=== PATIENT | female | born 1985 | race Caucasian/White ===

== ENCOUNTER → 2016-12-11 | Outpatient (CLI) | payer OTHER ==
[~2016-12-11] MED LIST: ACET1TAB43 PO; AMOX1TAB12 PO; BENZ56AE2 TP; CETI10CA PO; CYAN500T52 SL; DOCU100C37 PO; FERR-74 PO; IBUP-1773 PO; NEOM10SO8 OT; NF-CIPDEC RIGHT EAR; OXYC5TAB71 PO; PREN-37 PO
--- NOTE | 2016-12-11 13:39 | Diagnostic Imaging Report ---
INDICATION: Undergoing anatomical assessment. TECHNIQUE: Multiple real-time grayscale images were obtained of the gravid uterus. CORRELATION STUDY: None. FINDINGS: There is presence of a single viable intrauterine , currently in reported variable presentation. There is normal amount of amniotic fluid. The placenta is located anteriorly and without evidence for previa. Cervical length is 3.8 cm. Visualized anatomical structures appearing unremarkable. Biometrical measurements are as follows: Biparietal diameter 4.55 cm, age 19 weeks 6 days. Head circumference 17.24 cm, age 19 weeks 6 days. Abdominal circumference 14.71 cm, age 20 weeks 0 days. Femur length 3.38 cm, age 20 weeks 5 days. Sonographic estimated age: 20 weeks 1 day. Sonographic estimated date of delivery: 04/29/2017. heart rate: 144 BPM Estimated Weight: 339 gm (+/- 50 gm) LMP Percentile: 49% IMPRESSION: 1. Single intrauterine in a variable presentation. Sonographic estimated age of 20 weeks 1 day for an estimated date of delivery of April 29, 2017. Dictated by: Dictated on workstation # [id number]
== END ==
LOC: RAD 11:21
PROVIDERS: ATTEND Obstetrics & Gynecology
DX: Z36 Encounter for antenatal screening of mother (principal); Z3A.20 20 weeks gestation of pregnancy
CPT/HCPCS: 76805

== ENCOUNTER 2016-12-22 13:49 | Emergency (ER) | payer OTHER ==
[~2016-12-22] VITALS: Ht 157.5 cm; Wt 57.6 kg
[~2016-12-22 13:49] MED LIST changes: -AMOX1TAB12 PO; -NEOM10SO8 OT; -NF-CIPDEC RIGHT EAR; -OXYC5TAB71 PO
[2016-12-22] MEDS ORDERED: ONDANSETRON 4 MG (ZOFRAN) ORAL DISSOLVE TAB ONE (14:54)
[2016-12-22] MEDS ORDERED: ONDANSETRON 4 MG (ZOFRAN) ORAL DISSOLVE TAB PO ONE (15:00)
--- NOTE | 2016-12-22 15:09 | ED EENT ---
History of Present Illness General Chief Complaint: Ear Problems Stated Complaint: EAR PAIN SINUS CONGESTION Nursing Triage Note: C/O R-EAR PAIN. RADIATES TO SIDE OF HEAD. STATES NOW FEELS NAUSEA. 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 STATED EAR DRUM NOT RED. SAW DENTIST WHO STATED THAT IT WAS NOT TOOTH ABCESS. WAS GIVEN TYLENOL 3 ET ABX BY PRACTITIONER. STATES TYLENOL 3 NOT EFFECTIVE. Source: patient, RN notes reviewed Exam Limitations: no limitations History of Present Illness Time seen by provider: 15:09 Location: ear (R) Allergies and Home Medications Allergies Coded Allergies: No Known Drug Allergies (Unverified , 09/06/15) Home Medications Acetaminophen with Codeine 1 Each Tablet, 1 EACH PO Q6H, (Reported) Amoxicillin/Potassium Clav 1 Each Tablet, 1 EACH PO BID, (Reported) Cetirizine HCl 10 Mg Capsule, 10 MG PO DAILY, (Reported) Cyanocobalamin (Vitamin B-12) 500 Mcg Tab.subl, 500 MCG SL DAILY, (Reported) Ferrous Sulfate 325 Mg Tablet, 325 MG PO DAILY, #60 Prescribed by: KEITH BAL on 09/07/15 6292 Neomycin/Polymyxin B Sulf/Hc 10 Ml Solution, 10 ML OT, (Reported) Vit/Iron Fumarate/FA 1 Each Tablet, 1 EACH PO DAILY, (Reported) Past Micthnq-Oxidxr-Wgaunw Hx Patient Social History Alcohol Use: Denies Use Recreational Drug Use: No Smoking Status: Never a Smoker Recent Foreign Travel: No Contact w/Someone Who Travel: No Recent Infectious Disease Expo: No Immunizations Up To Date Tetanus Booster (TDap): Less than 5yrs PED Vaccines UTD: No Date of Influenza Vaccine: Aug 20, 2015 Surgeries HX Surgeries: Yes Respiratory Hx Respiratory Disorders: No Cardiovascular Hx Cardiac Disorders: No Neurological Hx Neurological Disorders: No Reproductive System : Yes Hx Reproductive Disorders: No Genitourinary Hx Genitourinary Disorders: No Gastrointestinal Hx Gastrointestinal Disorders: No Musculoskeletal Hx Musculoskeletal Disorders: No Musculoskeletal Disorders: Fractures Endocrine Hx Endocrine Disorders: No HEENT HX ENT Disorders: No Cancer Hx Cancer: No Psychosocial Hx Psychiatric Problems: No Integumentary HX Skin/Integumentary Disorder: No Blood Transfusions Hx Blood Disorders: No Family Medical History Family Medial History: Cardiovascular disease 19 FATHER, Onset:50's - 60 (50 ) Hypertension 19 FATHER, Onset:50's - 60 Myocardial infarction 19 FATHER, Onset:50's - 60 (50) Thyroid disease G8 SISTER, Onset:30's - 40 (one of pt's sister with thyroid disease.) Physical Exam Vital Signs Vital Sign - Last 12Hours 12/22/16 14:39 Temp 98.2 Pulse 80 Resp 18 B/P (MAP) 127/83 O2 Delivery Room Air Progress/Results/Core Measures Results/Orders My Orders Orders - ZION GODOY DO Ondansetron Oral Dissolve Tab (Zofran (12/22/16 15:00) Ondansetron Oral Dissolve Tab (Zofran (12/22/16 14:54) Ketorolac Injection (Toradol Injection) (12/22/16 15:15) Butorphanol Injection (Stadol Injection) (12/22/16 16:00) Medications Given in ED Current Medications Medications Dose Ordered Sig/Graciela Route Start Time Stop Time Status Last Admin Dose Admin Ondansetron HCl 4 mg ONCE ONCE PO 12/22/16 15:00 12/22/16 15:01 DC 12/22/16 15:06 4 MG Vital Signs/I&O Vital Sign - Last 12Hours 12/22/16 14:39 Temp 98.2 Pulse 80 Resp 18 B/P (MAP) 127/83 O2 Delivery Room Air Blood Pressure Mean: 98 Departure Impression Impression: Primary Impression: Acute otalgia Disposition: 01 HOME, SELF-CARE Condition: Stable Departure-Patient Inst. Decision time for Depature: 16:16 Referrals: KEITH ANGEL MD, JACQUELINE S DO (PCP/Family) Primary Care Physician Patient Instructions: Ear Infections (Otitis Media) (DC) Add. Discharge Instructions: All discharge instructions reviewed with patient and/or family. Voiced understanding. TO FOLLOW UP WITH DR. ANGEL Thursday, 12/24, @ 09:15. Scripts Oxycodone HCl (Oxycodone HCl) 5 Mg Tablet 5 MG PO Q6H Y for EAR PAIN, #20 TAB 0 Refills Prov: ZION GODOY DO 12/22/16 Ciprofloxacin HCl/Dexameth (Ciprodex Otic Suspension) 7.5 Ml Soln 4 DROPS RIGHT EAR BID for 10 Days, #1 EA 0 Refills Prov: ZION GODOY DO 12/22/16 ZION GODOY DO December 22, 2016 15:09
[2016-12-22] MEDS ORDERED: KETOROLAC 60 MG/2 ML VIAL IM ONE (15:15)
[2016-12-22] MEDS ORDERED: ACET1TAB43 PO (15:16)
[2016-12-22] MEDS ORDERED: NEOM10SO8 OT (15:16)
[2016-12-22] MEDS ORDERED: AMOX1TAB12 PO (15:16)
[2016-12-22] MEDS ORDERED: BUTORPHANOL INJ 2 MG/ML (STADOL) VIAL IM ONE (16:00)
[2016-12-22] MEDS ORDERED: NF-CIPDEC RIGHT EAR (16:19)
[2016-12-22] MEDS ORDERED: OXYC5TAB71 PO (16:19)
[2016-12-22 16:41] VITALS: BP 127/83
== END 2016-12-22 16:42 | disposition home or self-care (01) ==
LOC: EDUNIT# 13:49 → ER 13:52
DX: H92.01 Otalgia, right ear (principal)
CPT/HCPCS: 96372; 99282

== ENCOUNTER 2017-04-16 04:22 | Inpatient (IN) | payer OTHER ==
[~2017-04-16] VITALS: Ht 157.5 cm; Wt 65.9 kg
[2017-04-16] VITALS (54 sets, daily range): BP systolic 97–157; BP diastolic 55–100
[~2017-04-16 04:22] MED LIST changes: +AMOX1TAB12 PO; +NEOM10SO8 OT; +NF-CIPDEC RIGHT EAR; +OXYC5TAB71 PO
[2017-04-16] MEDS ORDERED: D5 LR IV SOLUTION 1,000 ML IV SCH (06:06)
[2017-04-16] MEDS ORDERED: MINERAL OIL CONCENTRATE 99.9% 15 ML UDC TOP PRN (06:15)
[2017-04-16] MEDS ORDERED: SUFENTA 0.6MCG/ML BUPIVA 0.125 100 ML ONE (06:29)
[2017-04-16 06:38] LABS: BASOPHILS % (AUTO) 0 % (0-10); EOSINOPHILS # (AUTO) 0.2 10^3/uL (0.0-0.3); EOSINOPHILS % (AUTO) 2 % (0-10); LYMPHOCYTES # (AUTO) 2.4 X 10^3 (1.0-4.0); LYMPHOCYTES % (AUTO) 31 % (12-44); MEAN CORPUSCULAR HEMOGLOBIN 29 PG (25-34); MEAN CORPUSCULAR HGB CONC 34 G/DL (32-36); MEAN CORPUSCULAR VOLUME 86 FL (80-99); MEAN PLATELET VOLUME 9.8 FL (7.4-10.4); MONOCYTES # (AUTO) 0.6 X 10^3 (0.0-1.0); MONOCYTES % (AUTO) 8 % (0-12); NEUTROPHILS # (AUTO) 4.4 X 10^3 (1.8-7.8); NEUTROPHILS % (AUTO) 58 % (42-75); PLATELET COUNT 329 10^3/uL (130-400); RED BLOOD COUNT 3.55 10^6/uL (4.35-5.85); RED CELL DISTRIBUTION WIDTH 14.9 % (10.0-14.5); WHITE BLOOD COUNT 7.7 10^3/uL (4.3-11.0)
[2017-04-16] MEDS ORDERED: LACTATED RINGERS 1,000 ML IV SCH (07:01)
[2017-04-16 07:09] LABS: BILIRUBIN,URINE NEGATIVE (NEGATIVE); KETONES,URINE NEGATIVE (NEGATIVE); LEUKOCYTE ESTERASE ,URINE NEGATIVE (NEGATIVE); NITRITE,URINE NEGATIVE (NEGATIVE); PH,URINE 7 (5-9); PROTEIN,URINE NEGATIVE (NEGATIVE); UROBILINOGEN,URINE NORMAL (NORMAL)
[2017-04-16] MEDS ORDERED: MISOPROSTOL 100 MCG (CYTOTEC) TAB PO NR (07:15)
--- NOTE | 2017-04-16 07:17 | History & Physical-OB ---
OB - Chief Complaint & HPI Date/Time Date of Admission: Date of Admission: Apr 16, 2017 at 6:04 am Time Seen by Provider: 07:10 Chief Complaint/History OB-Reason for Admission/Chief: Induction of Labor Hx : 2 Hx Para: 1 Expected Date of Delivery: Apr 29, 2017 Indication for induction: medical complication Other reason for admission: Patient brought in for unstable ly and ECV today, where she was found to be vertex on exam today. Fluid levels have hovered around the oligo david, and at times a funic presentation was noted. Admission Nurse Assessment Rev: Yes History of Labs Abnormal quad screen increased risk of T21 B neg Antibody neg RI RPR NR HBsAg NR HIV NR GC neg GBS neg Allergies and Home Medications Allergies Coded Allergies: No Known Drug Allergies (Unverified , 04/16/17) Home Medications Acetaminophen with Codeine 1 Each Tablet, 1 EACH PO Q6H, (Reported) Amoxicillin/Potassium Clav 1 Each Tablet, 1 EACH PO BID, (Reported) Cetirizine HCl 10 Mg Capsule, 10 MG PO DAILY, (Reported) Ciprofloxacin HCl/Dexameth 7.5 Ml Soln, 4 DROPS RIGHT EAR BID for 10 Days, #1 Ref 0 Prescribed by: ZION GODOY on 12/22/16 1619 Cyanocobalamin (Vitamin B-12) 500 Mcg Tab.subl, 500 MCG SL DAILY, (Reported) Ferrous Sulfate 325 Mg Tablet, 325 MG PO DAILY, #60 Prescribed by: KEITH BAL on 09/07/15 2319 Neomycin/Polymyxin B Sulf/Hc 10 Ml Solution, 10 ML OT, (Reported) Oxycodone HCl 5 Mg Tablet, 5 MG PO Q6H PRN for EAR PAIN, #20 Ref 0 Prescribed by: ZION GODOY on 12/22/16 1619 Vit/Iron Fumarate/FA 1 Each Tablet, 1 EACH PO DAILY, (Reported) OB - History Hx of Present Care: Yes Ultrasounds: Abnormal US findings (oligohydramnios) Obstetrical Complications: Other (Abnormal quad screen T21, unstable lye) Medical Complications: None Delivery History Hx Blood Disorders: No Patient Past Medical History none Immunizations Hepatitis A: Yes Hepatitis B: Yes Tetanus Booster (TDap): Less than 5yrs Date of Influenza Vaccine: Aug 20, 2015 OB - Admission Exam Physical Exam Date Seen by Provider: Apr 16, 2017 Time Seen by Provider: 07:00 HEENT: NCAT Heart: Rhythm Normal Lungs: Clear Abdomen: Gravid Extremities: Normal Reflexes: Normal Cervical Dilatation: 2cm Effacement: 75% Station: -1 Membranes: Intact Heart Rate: 130's Accelerations: Accelerations Present Decelerations: No Decelerations Short Term Variability: Present Cone Baker Machine Variability: Average (6-25) Contractions on Admission: >10 Minutes Apart Intensity: Mild Cross Scoring Tool (Modified) Dilation (cm): 1-2cm (1) Effacement (%): 51-79% (2) Descent/Station: -1,0 (2) Cervix Consistency: Soft (2) Cervix Position: Middle/Mid-Position (1) Add 1 point for: Each previous vaginal delivery (1) Cross Score: 9 Labs Laboratory Tests Test 04/16/17 06:10 04/16/17 06:25 Range/Units White Blood Count 7.7 4.3-11.0 10^3/uL Red Blood Count 3.55 L 4.35-5.85 10^6/uL Hemoglobin 10.3 L 11.5-16.0 G/DL Hematocrit 31 L 35-52 % Mean Corpuscular Volume 86 80-99 FL Mean Corpuscular Hemoglobin 29 25-34 PG Mean Corpuscular Hemoglobin Concent 34 32-36 G/DL Red Cell Distribution Width 14.9 H 10.0-14.5 % Platelet Count 329 130-400 10^3/uL Mean Platelet Volume 9.8 7.4-10.4 FL Neutrophils (%) (Auto) 58 42-75 % Lymphocytes (%) (Auto) 31 12-44 % Monocytes (%) (Auto) 8 0-12 % Eosinophils (%) (Auto) 2 0-10 % Basophils (%) (Auto) 0 0-10 % Neutrophils # (Auto) 4.4 1.8-7.8 X 10^3 Lymphocytes # (Auto) 2.4 1.0-4.0 X 10^3 Monocytes # (Auto) 0.6 0.0-1.0 X 10^3 Eosinophils # (Auto) 0.2 0.0-0.3 10^3/uL Basophils # (Auto) 0.0 0.0-0.1 10^3/uL OB - Assessment/Plan/Diagnosis Assessment Assessment: induction of labor Plan Plan: Induction Induction Method: per Misoprostol Protocol Discharge Diagnosis Diagnosis: 32 yo @ 38.1 Unstable presentation Borderline oligohydramnios Abnormal quad screen GBS neg KEITH BAL DO Apr 16, 2017 7:17 am
[2017-04-16 07:20] LABS: SQUAMOUS EPITHELIAL CELL,UR TNTC /HPF
[2017-04-16] MEDS ORDERED: MISOPROSTOL 100 MCG (CYTOTEC) TAB PO SCH (11:15)
[2017-04-16] MEDS ORDERED: CATHETER FLUSH 10 ML SYR IV SCH ×2 (14:00→22:00)
[2017-04-16] MEDS ORDERED: BUPIVACAINE 0.25% 30 ML (SENSORCAINE) VIAL ONE (15:56)
[2017-04-16] MEDS ORDERED: LIDOCAINE PF 2% 5 ML (XYLOCAINE) VIAL ONE (15:56)
[2017-04-16] MEDS ORDERED: fentaNYL INJECTION 100 MCG/2 ML AMP ONE (15:57)
[2017-04-16] MEDS ORDERED: LACTATED RINGERS 1,000 ML IV ONE ×2 (16:23)
[2017-04-16] MEDS ORDERED: ONDANSETRON 4 MG/2 ML (SDV) Z0FRAN IV PRN (16:30)
[2017-04-16] MEDS ORDERED: EPIDURAL (SUFENTA 0.6MCG/ML BUPIVA 0.125%) 100 ML BAG EPI PRN (16:30)
[2017-04-16] MEDS ORDERED: NALOXONE 0.4 MG/ML 1 ML (NARCAN) VIAL IV PRN (16:30)
[2017-04-16] MEDS ORDERED: OXYTOCIN/NORMAL SALINE 500 ML IV ONE (20:47)
[2017-04-16] MEDS ORDERED: OXYTOCIN/NORMAL SALINE 500 ML IV SCH (21:03)
--- NOTE | 2017-04-16 21:09 | OB Labor & Delivery Record ---
L&D History Date of Service Date of Service: Apr 16, 2017 History Expected Date of Delivery: Apr 29, 2017 Gestational Age in Weeks: 38 Hx : 2 Hx Para: 1 Complications Events: Oliohydramnios, Routine care (Abnormal quad screen, Unstable ly) Operative Indications (Cesarea: N/A-Vaginal Delivery Intrapartal Events: None L&D Stage1 Stage One Onset of Labor - Date: Apr 16, 2017 Monitors and Tracing Monitor Mode: External Heart Rate: 110 Monitor Accelerations: Uniform Station: 0 Rigging Loft Mechanic Variability: Average (6-10) Short Term Variability: Present Presentation: Vertex Vital Signs VS - Last 72 Hours, by Label 04/16/17 04/16/17 04/16/17 04/16/17 06:15 08:10 09:10 12:00 Temp 97.8 98.0 Pulse 68 74 71 73 Resp 18 18 18 18 B/P (MAP) 114/68 120/72 111/74 122/61 O2 Delivery Room Air Room Air Room Air Room Air 04/16/17 04/16/17 04/16/17 04/16/17 12:30 12:50 13:10 13:34 Pulse 68 68 69 69 Resp 20 20 18 20 B/P (MAP) 114/67 111/65 117/67 119/70 O2 Delivery Room Air Room Air Room Air Room Air 04/16/17 04/16/17 04/16/17 04/16/17 13:48 14:18 14:35 14:45 Temp 98.2 Pulse 71 67 67 68 Resp 20 20 20 18 B/P (MAP) 119/70 112/73 119/80 118/78 O2 Delivery Room Air Room Air Room Air Room Air 04/16/17 04/16/17 04/16/17 04/16/17 15:00 15:20 15:35 15:50 Pulse 63 67 65 66 Resp 18 18 18 18 B/P (MAP) 117/74 119/86 119/76 113/72 O2 Delivery Room Air Room Air Room Air Room Air 04/16/17 04/16/17 04/16/17 04/16/17 16:05 16:10 16:15 16:20 Pulse 78 75 72 63 Resp 18 18 18 18 B/P (MAP) 115/73 125/72 105/61 111/61 Pulse Ox 100 99 99 O2 Delivery Room Air Room Air Room Air Room Air 04/16/17 04/16/17 04/16/17 04/16/17 16:25 16:30 16:35 16:40 Pulse 61 68 67 69 Resp 18 20 20 20 B/P (MAP) 104/56 104/59 104/59 104/62 Pulse Ox 92 100 99 99 O2 Delivery Room Air Room Air Room Air Room Air 04/16/17 04/16/17 04/16/17 04/16/17 16:45 16:50 16:55 17:00 Pulse 63 66 72 69 Resp 20 20 18 18 B/P (MAP) 107/67 108/67 115/59 106/62 Pulse Ox 99 99 99 98 O2 Delivery Room Air Room Air Room Air Room Air 04/16/17 04/16/17 04/16/17 04/16/17 17:05 17:10 17:15 17:20 Pulse 68 60 65 65 Resp 18 18 18 18 B/P (MAP) 103/65 103/67 108/69 106/69 Pulse Ox 97 98 98 98 O2 Delivery Room Air Room Air Room Air Room Air 04/16/17 04/16/17 04/16/17 04/16/17 17:25 17:30 17:35 17:40 Pulse 67 66 70 63 Resp 20 20 20 20 B/P (MAP) 100/68 105/70 115/75 105/61 Pulse Ox 98 98 98 98 O2 Delivery Room Air Room Air Room Air Room Air 04/16/17 04/16/17 04/16/17 04/16/17 17:55 18:05 18:10 18:25 Pulse 64 65 59 59 Resp 20 20 20 20 B/P (MAP) 97/59 97/62 100/65 109/68 Pulse Ox 99 98 100 100 O2 Delivery Room Air Room Air Room Air Room Air 04/16/17 18:45 Pulse 60 Resp 20 B/P (MAP) 108/64 Pulse Ox 100 O2 Delivery Room Air Rupture of Membranes Spontaneous Ruture of Membrane: Yes Amniotic Membrane Rupture Time: 1158 Amniotic Membrane Fluid Desc.: Clear Vaginal Bleeding Description: Normal Show Induction/Anesthesia Epidural Cath Placement - Time: 1615 Progress/Notes AROM at 1158 and pitocin started this afternoon, patient recieved epidural L&D Stage2 Stage Two Stage II Date: Apr 16, 2017 Monitors and Tracing Monitor Mode: External Heart Rate: 110 Monitor Accelerations: Uniform Monitor Decelerations: Variable Intermediate Variability: Average (6-10) Short Term Variability: Present Position: Right Occiput Anterior Presentation: Vertex Cord Descript/Complications Cord Vessel Description: 3 Vessels Delivery Type Anterior Shoulder: Left Episiotomy/Perineal Laceration Laceraction(s)/Extensions: Yes Episiotomy Description: Midline, Periurethral Extnsion/lac Degree (describe repair) Left periclitoral laceration repaired using 3-0 vicryl rapide, and midline episiotomy repaired in normal fashion Condition of Infant Delivery 1 minute Comment: 8 5 minute Comment: 9 Notes live male infant weight pending Condition of Infant Condition of : Living Exam: No Observed Abnormalities Resuscitation Resuscitation: N/A - Spontaneous Resp L&D Stage3 Stage Three Stage III Date: Apr 16, 2017 Pictocin Pitocin Administration mu/min: 6 Pitocin ml/hr: 6 Pitocin Administration Comment: 30 mu wide open at delivery of placenta Placenta Delivery Placenta Delivery: Spontaneous Delivery Summary Summary blood loss >1000ml: No Vaginal blood loss >500ml: No 350 Attending at delivery: Keith Bal DO Condition of Delivery Examined: Cervix Examined, Uterus Explored Post Hemorrhage: No Condition of Mother stable Condition of Infant (s) stable KEITH BAL DO Apr 16, 2017 21:09
[2017-04-16] MEDS ORDERED: TETANUS,DIPTH,PERTUSS P/F (BOOSTRIX) 0.5 ML VIAL IM ONE (21:15)
[2017-04-16] MEDS ORDERED: APAP 300 MG/CODEINE 30 MG (TYLENOL #3) TAB PO PRN (21:15)
[2017-04-16] MEDS ORDERED: BENZOCAINE/MENTHOL (DERMOPLAST) 56 ML CAN TP PRN (21:15)
[2017-04-16] MEDS ORDERED: MEASLES,MUMPS,RUBELLA 1 EA INJ SQ ONE (21:15)
[2017-04-16] MEDS ORDERED: WITCH HAZEL(TUCKS) 40 EA JAR TOP PRN (21:15)
[2017-04-17] MEDS: IBUPROFEN 600 MG (MOTRIN) TAB PO SCH ×5 (00:25→21:13)
[2017-04-17 03:20] VITALS: BP 101/63
[2017-04-17 06:08] VITALS: BP 94/56
[2017-04-17] MEDS: DIBUCAINE (NUPERCAINAL) 1% OINT 30 GM TOP PRN (06:14)
[2017-04-17 06:35] LABS: BASOPHILS % (AUTO) 0 % (0-10); EOSINOPHILS % (AUTO) 0 % (0-10); LYMPHOCYTES # (AUTO) 2.2 X 10^3 (1.0-4.0); LYMPHOCYTES % (AUTO) 13 % (12-44); MEAN CORPUSCULAR HEMOGLOBIN 29 PG (25-34); MEAN CORPUSCULAR HGB CONC 34 G/DL (32-36); MEAN CORPUSCULAR VOLUME 87 FL (80-99); MEAN PLATELET VOLUME 10.1 FL (7.4-10.4); MONOCYTES % (AUTO) 6 % (0-12); NEUTROPHILS # (AUTO) 14.3 X 10^3 (1.8-7.8); NEUTROPHILS % (AUTO) 81 % (42-75); PLATELET COUNT 368 10^3/uL (130-400); RED BLOOD COUNT 3.89 10^6/uL (4.35-5.85); RED CELL DISTRIBUTION WIDTH 15.1 % (10.0-14.5); WHITE BLOOD COUNT 17.6 10^3/uL (4.3-11.0)
[2017-04-17] MEDS ORDERED: IBUP-1773 PO (08:39)
[2017-04-17] MEDS ORDERED: DOCU100C37 PO (08:39)
[2017-04-17] MEDS ORDERED: BENZ56AE2 TP (08:39)
[2017-04-17] MEDS ORDERED: ACET1TAB43 PO (08:39)
--- NOTE | 2017-04-17 08:40 | Discharge Inst-Women's Service ---
Discharge Inst-Women's Serv Depart Medication/Instructions New, Converted or Re-Newed RX: RX on Chart Consults/Follow Up Additional Follow Up: Yes Orders/Referrals DR. Bal in 6 weeks Activity Activity: Activity as Tolerated Driving Instructions: No Driving for 1 Week NO SMOKING: NO SMOKING Nothing Inside Vagina: No Douching, No Temple, No Tampons Diet Discharge Diet: No Restrictions Symptoms to Report to : Bleeding Excessive, Pain Increased, Fever Over 101 Degrees F, Vaginal Bleeding Increase, Questions/Concerns For Any Problems or Questions: Contact Your Physician Skin/Wound Care Bathing Instructions: Shower (x 2 weeks or sitzs baths) KEITH BAL DO Apr 17, 2017 8:40 am
[2017-04-17] MEDS: FERROUS SULF 325 MG (IRON) TAB PO SCH (09:26)
[2017-04-17] MEDS: DOCUSATE SODIUM 100 MG (COLACE) CAP PO SCH ×2 (09:26→21:13)
[2017-04-17] MEDS: PRENATAL VITAMIN 1 EA TAB PO SCH (09:26)
[2017-04-17 09:28] VITALS: BP 98/64
--- NOTE | 2017-04-17 09:57 | Progress Note-Standard ---
Standard Progress Note Progress Notes/Assess & Plan Date Seen by Provider: Apr 17, 2017 Time Seen by Provider: 09:15 Progress/Assessment & Plan Patient is doing well day one normal vaginal delivery. She is breast -feeding her . She denies heavy lochia and denies uncontrolled pain. She is ambulating and voiding freely. Vital Sign - Last 24 Hours 04/16/17 04/16/17 04/16/17 04/16/17 12:00 12:30 12:50 13:10 Pulse 73 68 68 69 Resp 18 20 20 18 B/P (MAP) 122/61 114/67 111/65 117/67 O2 Delivery Room Air Room Air Room Air Room Air 04/16/17 04/16/17 04/16/17 04/16/17 13:34 13:48 14:18 14:35 Temp 98.2 Pulse 69 71 67 67 Resp 20 20 20 20 B/P (MAP) 119/70 119/70 112/73 119/80 O2 Delivery Room Air Room Air Room Air Room Air 04/16/17 04/16/17 04/16/17 04/16/17 14:45 15:00 15:20 15:35 Pulse 68 63 67 65 Resp 18 18 18 18 B/P (MAP) 118/78 117/74 119/86 119/76 O2 Delivery Room Air Room Air Room Air Room Air 04/16/17 04/16/17 04/16/17 04/16/17 15:50 16:05 16:10 16:15 Pulse 66 78 75 72 Resp 18 18 18 18 B/P (MAP) 113/72 115/73 125/72 105/61 Pulse Ox 100 99 O2 Delivery Room Air Room Air Room Air Room Air 04/16/17 04/16/17 04/16/17 04/16/17 16:20 16:25 16:30 16:35 Pulse 63 61 68 67 Resp 18 18 20 20 B/P (MAP) 111/61 104/56 104/59 104/59 Pulse Ox 99 92 100 99 O2 Delivery Room Air Room Air Room Air Room Air 04/16/17 04/16/17 04/16/17 04/16/17 16:40 16:45 16:50 16:55 Pulse 69 63 66 72 Resp 20 20 20 18 B/P (MAP) 104/62 107/67 108/67 115/59 Pulse Ox 99 99 99 99 O2 Delivery Room Air Room Air Room Air Room Air 04/16/17 04/16/17 04/16/17 04/16/17 17:00 17:05 17:10 17:15 Pulse 69 68 60 65 Resp 18 18 18 18 B/P (MAP) 106/62 103/65 103/67 108/69 Pulse Ox 98 97 98 98 O2 Delivery Room Air Room Air Room Air Room Air 04/16/17 04/16/17 04/16/17 04/16/17 17:20 17:25 17:30 17:35 Pulse 65 67 66 70 Resp 18 20 20 20 B/P (MAP) 106/69 100/68 105/70 115/75 Pulse Ox 98 98 98 98 O2 Delivery Room Air Room Air Room Air Room Air 04/16/17 04/16/17 04/16/17 04/16/17 17:40 17:55 18:05 18:10 Pulse 63 64 65 59 Resp 20 20 20 20 B/P (MAP) 105/61 97/59 97/62 100/65 Pulse Ox 98 99 98 100 O2 Delivery Room Air Room Air Room Air Room Air 04/16/17 04/16/17 04/16/17 04/16/17 18:25 18:45 18:55 19:10 Pulse 59 60 61 55 Resp 20 20 20 20 B/P (MAP) 109/68 108/64 104/64 105/68 Pulse Ox 100 100 100 100 O2 Delivery Room Air Room Air Room Air Non Rebreather O2 Flow Rate 15.00 04/16/17 04/16/17 04/16/17 04/16/17 19:25 19:40 19:55 20:10 Temp 97.8 Pulse 60 71 64 78 Resp 20 20 20 20 B/P (MAP) 107/67 111/71 113/71 157/100 Pulse Ox 100 89 O2 Delivery Non Rebreather Non Rebreather Non Rebreather Room Air O2 Flow Rate 15.00 15.00 15.00 04/16/17 04/16/17 04/16/17 04/16/17 20:40 20:55 21:10 21:25 Pulse 82 88 65 86 Resp 20 20 18 18 B/P (MAP) 115/57 109/71 118/69 107/77 O2 Delivery Room Air Room Air Room Air Room Air 8/3104/16/17 04/16/17 04/17/17 22:25 22:34 23:05 03:20 Temp 98.2 97.8 98.5 Pulse 65 71 73 67 Resp 18 18 18 16 B/P (MAP) 105/64 102/62 107/55 101/63 Pulse Ox 97 O2 Delivery Room Air Room Air Room Air 04/17/17 06:08 Temp 98.2 Pulse 63 Resp 18 B/P (MAP) 94/56 Pulse Ox 98 Uterine fundus firm and palpated below the umbilicus Laboratory Tests Test 04/17/17 06:05 Range/Units White Blood Count 17.6 H 4.3-11.0 10^3/uL Red Blood Count 3.89 L 4.35-5.85 10^6/uL Hemoglobin 11.4 L 11.5-16.0 G/DL Hematocrit 34 L 35-52 % Mean Corpuscular Volume 87 80-99 FL Mean Corpuscular Hemoglobin 29 25-34 PG Mean Corpuscular Hemoglobin Concent 34 32-36 G/DL Red Cell Distribution Width 15.1 H 10.0-14.5 % Platelet Count 368 130-400 10^3/uL Mean Platelet Volume 10.1 7.4-10.4 FL Neutrophils (%) (Auto) 81 H 42-75 % Lymphocytes (%) (Auto) 13 12-44 % Monocytes (%) (Auto) 6 0-12 % Eosinophils (%) (Auto) 0 0-10 % Basophils (%) (Auto) 0 0-10 % Neutrophils # (Auto) 14.3 H 1.8-7.8 X 10^3 Lymphocytes # (Auto) 2.2 1.0-4.0 X 10^3 Monocytes # (Auto) 1.0 0.0-1.0 X 10^3 Eosinophils # (Auto) 0.0 0.0-0.3 10^3/uL Basophils # (Auto) 0.0 0.0-0.1 10^3/uL Diagnosis: day one normal vaginal delivery Plan: Due to late evening delivery plan on keeping patient up tomorrow and discharge him tomorrow pending continue improvement Continue routine care KEITH BAL DO Apr 17, 2017 9:57 am
[2017-04-17 12:49] VITALS: BP 110/74
--- NOTE | 2017-04-17 16:18 | Anesthesia-Regional Post-Op ---
Regional Patient Condition Mental Status: Alert, Oriented x3 Circulation: Same as Pre-Op Headache: Absent Sensation: Full Recovery Motor Block: Absent Post Op Complications Complications None Follow Up Care/Instructions Patient Instructions None needed. Anesthesia/Patient Condition Patient is doing well, no complaints, stable vital signs, no apparent adverse anesthesia problems. RENNY OLVERA DO Apr 17, 2017 16:18
[2017-04-17 16:45] VITALS: BP 103/64
[2017-04-17 20:00] VITALS: BP 105/69
[2017-04-18 02:55] VITALS: BP 103/65
[2017-04-18] MEDS: IBUPROFEN 600 MG (MOTRIN) TAB PO SCH ×3 (02:55→15:27)
--- NOTE | 2017-04-18 08:45 | Progress Note-Standard ---
Standard Progress Note Progress Notes/Assess & Plan Date Seen by Provider: Apr 18, 2017 Time Seen by Provider: 08:20 Progress/Assessment & Plan Patient is doing well day two normal vaginal delivery. She is breast -feeding her infant. She denies heavy lochia and denies uncontrolled pain. She is ambulating and voiding freely. Vital Sign - Last 24 Hours 04/17/17 04/17/17 04/17/17 04/17/17 09:28 12:49 16:45 20:00 Temp 98.4 97.4 97.5 98.1 Pulse 68 63 71 64 Resp 18 18 18 18 B/P (MAP) 98/64 110/74 103/64 105/69 Pulse Ox 98 100 99 98 O2 Delivery Room Air Room Air Room Air Room Air 04/18/17 02:55 Temp 97.8 Pulse 66 Resp 18 B/P (MAP) 103/65 Pulse Ox 98 O2 Delivery Room Air Diagnosis: day two normal vaginal delivery Plan: Continue routine care precautions reviewed with patient Discharge later today KEITH BAL DO Apr 18, 2017 8:45 am
[2017-04-18 09:15] VITALS: BP 100/60
[2017-04-18] MEDS: FERROUS SULF 325 MG (IRON) TAB PO SCH (09:17)
[2017-04-18] MEDS: PRENATAL VITAMIN 1 EA TAB PO SCH (09:17)
[2017-04-18] MEDS: DOCUSATE SODIUM 100 MG (COLACE) CAP PO SCH (09:17)
[2017-04-18] MEDS: DIBUCAINE (NUPERCAINAL) 1% OINT 30 GM TOP PRN (09:45)
[2017-04-18 12:45] VITALS: BP 104/67
[2017-04-18 16:05] VITALS: BP 104/67
== END 2017-04-18 16:05 | disposition home or self-care (01) | DRG 775 ==
LOC: LDRP 06:04
PROVIDERS: ADMIT Obstetrics & Gynecology; ATTEND Obstetrics & Gynecology
PROC: 10E0XZZ Delivery of Products of Conception, External Approach (ICD-10-PCS; principal; 2017-04-16)
PROC: 0W8NXZZ Division of Female Perineum, External Approach (ICD-10-PCS; 2017-04-16)
PROC: 0HQ9XZZ Repair Perineum Skin, External Approach (ICD-10-PCS; 2017-04-16)
DX: O41.03X0 Oligohydramnios, third trimester, not applicable or unspecified (principal); O32.0XX0 Maternal care for unstable lie, not applicable or unspecified; O70.0 First degree perineal laceration during delivery; Z3A.38 38 weeks gestation of pregnancy; Z37.0 Single live birth; Z41.8 Encounter for other procedures for purposes other than remedying health state
CPT/HCPCS: 36415; 81000; 83033; 85025; 86850; 86870; 86900; 86901

== ENCOUNTER 2018-10-07 18:52 | Emergency (ER) | payer OTHER ==
[~2018-10-07 18:52] MED LIST changes: -FERR-74 PO; +FERR325T18 PO; +OXYC-529 PO; -OXYC5TAB71 PO
== END 2018-10-07 19:18 | disposition left against medical advice (07) ==
LOC: EDUNIT# 18:52 → ER 18:54
DX: O26.891 Other specified pregnancy related conditions, first trimester (principal); O21.9 Vomiting of pregnancy, unspecified; Z3A.13 13 weeks gestation of pregnancy

== ENCOUNTER → 2018-11-29 | Outpatient (CLI) | payer OTHER ==
--- NOTE | 2018-11-29 12:12 | Diagnostic Imaging Report ---
INDICATION: survey. TECHNIQUE: Multiple Real-time grayscale images were obtained over the gravid uterus. COMPARISON: None. FINDINGS: There is a single live fetus in a variable presentation. The visualized posterior placenta is unremarkable. There is no abruption. The heart rate was recorded at 143 BPM. The amniotic fluid volume appears to be normal. The survey demonstrates the kidneys, bladder, and stomach to be unremarkable. The brain is unremarkable. There is a four-chamber heart. There is a three-vessel cord with normal insertion. The spine is unremarkable. Biometrical measurements are as follows: Biparietal 4.72 cm, age 20 weeks 2 days. Head circumference 17.76 cm, age 20 weeks 2 days. Abdominal circumference 14.50 cm, age 19 weeks 6 days. Femur length 3.44 cm, age 20 weeks 6 days. Sonographic estimate age: 20 weeks 3 days. Sonographic estimated date of delivery: 04/15/2019. Estimated Weight: 343 gm (+/- 50 gm). LMP percentile: 45%. heart rate: 143 beats per minute. number: 1 of 1. IMPRESSION: Single live IUP of 20 weeks 3 days gestational age. The estimated date of confinement sonographically is 04/15/2019. Dictated by: Dictated on workstation # [id number]
== END ==
LOC: RAD 09:47
PROVIDERS: ATTEND Obstetrics & Gynecology
DX: Z36.89 Encounter for other specified antenatal screening (principal); Z3A.20 20 weeks gestation of pregnancy
CPT/HCPCS: 76805

== ENCOUNTER 2019-04-10 19:20 | Inpatient (IN) | payer OTHER ==
[~2019-04-10] VITALS: Ht 157.5 cm; Wt 70.3 kg
--- NOTE | 2019-04-10 19:20 | NUR ---
GORGE HART presented to unit via ambulatory from home, accompanied by , for INDUCTION. GORGE HART weighed, gowned, voided, and to bed. EFHM and TOCO applied, VS taken. GORGE HART oriented to bed controls, call light, TV, heat, and A/C controls.
[2019-04-10 20:00] VITALS: BP 119/77
[2019-04-10] MEDS ORDERED: LACTATED RINGERS 1,000 ML IV SCH (20:02)
[2019-04-10] MEDS ORDERED: D5 LR IV SOLUTION 1,000 ML IV SCH (20:02)
[2019-04-10] MEDS ORDERED: MISOPROSTOL 100 MCG (CYTOTEC) TAB PO ONE (20:15)
[2019-04-10] MEDS ORDERED: TERBUTALINE INJ 1 MG/ML (BRETHINE) AMP SC PRN (20:15)
[2019-04-10 20:29] LABS: BASOPHILS % (AUTO) 0 % (0-10); EOSINOPHILS # (AUTO) 0.1 10^3/uL (0.0-0.3); EOSINOPHILS % (AUTO) 1 % (0-10); HEMATOCRIT 34 % (35-52); HEMOGLOBIN 11.5 G/DL (11.5-16.0); LYMPHOCYTES # (AUTO) 1.5 X 10^3 (1.0-4.0); LYMPHOCYTES % (AUTO) 22 % (12-44); MEAN CORPUSCULAR HEMOGLOBIN 30 PG (25-34); MEAN CORPUSCULAR HGB CONC 34 G/DL (32-36); MEAN CORPUSCULAR VOLUME 87 FL (80-99); MEAN PLATELET VOLUME 10.7 FL (7.4-10.4); MONOCYTES # (AUTO) 0.7 X 10^3 (0.0-1.0); MONOCYTES % (AUTO) 10 % (0-12); NEUTROPHILS # (AUTO) 4.7 X 10^3 (1.8-7.8); NEUTROPHILS % (AUTO) 67 % (42-75); PLATELET COUNT 242 10^3/uL (130-400); RED CELL DISTRIBUTION WIDTH 14.8 % (10.0-14.5); WHITE BLOOD COUNT 7.1 10^3/uL (4.3-11.0)
[2019-04-10 20:40] LABS: BILIRUBIN,URINE NEGATIVE (NEGATIVE); CLARITY,URINE CLEAR; COLOR,URINE YELLOW; GLUCOSE, URINE (UA) NEGATIVE (NEGATIVE); KETONES,URINE NEGATIVE (NEGATIVE); LEUKOCYTE ESTERASE ,URINE 1+ (NEGATIVE); NITRITE,URINE NEGATIVE (NEGATIVE); PH,URINE 6.5 (5-9); PROTEIN,URINE NEGATIVE (NEGATIVE); UROBILINOGEN,URINE NORMAL (NORMAL)
[2019-04-10 20:49] LABS: BACTERIA,URINE TRACE /HPF; SQUAMOUS EPITHELIAL CELL,UR 25-50 /HPF
[2019-04-10] MEDS ORDERED: CYAN500T44 PO (21:23)
[2019-04-10 22:00] VITALS: BP 117/78
[2019-04-10] MEDS ORDERED: CATHETER FLUSH 10 ML SYR IV SCH (22:00)
[2019-04-10 23:00] VITALS: BP 113/68
[2019-04-11] VITALS (16 sets, daily range): BP systolic 98–153; BP diastolic 57–82
[2019-04-11] MEDS ORDERED: MISOPROSTOL 100 MCG (CYTOTEC) TAB PO SCH (00:15)
--- NOTE | 2019-04-11 01:04 | NUR ---
This RN called Dr Villagomez to notify of patient contraction pattern frequency as it is time to give next dose of cytotec, notified of FHR variability. New orders to hold medication at this time.
--- NOTE | 2019-04-11 02:08 | NUR ---
This RN called Dr Villagomez to notify of patient SROM, sve and request for epidural. New orders received.
--- NOTE | 2019-04-11 02:09 | NUR ---
This RN called A [facility] [employer] EDUCATION [employer]IST to notify of patient request for epidural.
[2019-04-11] MEDS ORDERED: SUFENTA 0.6MCG/ML BUPIVA 0.125 100 ML ONE (02:14)
[2019-04-11] MEDS ORDERED: LIDOCAINE/EPI 2% 1:200,00 (XYLOCAINE) 10 ML VIAL ONE ×2 (02:28→02:50)
[2019-04-11] MEDS ORDERED: OXYTOCIN/NORMAL SALINE 500 ML IV ONE ×2 (02:28→03:09)
[2019-04-11] MEDS ORDERED: MEPIVACAINE (CARBOCAINE) 2% 50 ML VIAL ONE (02:28)
--- NOTE | 2019-04-11 02:38 | NUR ---
Jennifer Manzo RN called Dr Villagomez to notify of patient complete status with urge to push. to come to hospital.
--- NOTE | 2019-04-11 02:53 | NUR ---
Spontaneous vaginal delivery of viable male infant per Dr Villagomez. to patient abdomen dried and stimulated. Cord clamped per and cut per FOB. Repair began per Dr Villagomez see Dr's note for details. Spontaneous delivery of placenta, to process per order. See labor flow sheet for fundal massage and rubra details.
[2019-04-11] MEDS: OXYTOCIN/NORMAL SALINE 500 ML IV SCH ×2 (03:06→03:40)
--- NOTE | 2019-04-11 03:30 | History & Physical-OB ---
OB - Chief Complaint & HPI Date/Time Date of Admission: Date of Admission: Apr 10, 2019 at 7:20 pm Date seen by a Provider: Apr 11, 2019 Time Seen by a Provider: 03:05 Chief Complaint/History OB-Reason for Admission/Chief: Induction of Labor Hx : 3 Hx Para: 2 Expected Date of Delivery: Apr 16, 2019 Gestational Age in Weeks: 39 Gestational Age in Days: 1 Admission Nurse Assessment Rev: Yes History of Labs B neg Antibody neg RI RPR NR HBsAg NR HIV NR GC neg GBS neg Allergies and Home Medications Allergies Coded Allergies: No Known Drug Allergies (Unverified , 04/16/17) Home Medications Cetirizine HCl 10 Mg Capsule, 10 MG PO DAILY, (Reported) Cyanocobalamin (Vitamin B-12) 500 Mcg Tablet, 500 MCG PO DAILY, (Reported) Ferrous Sulfate 325 Mg Tablet, 325 MG PO DAILY Prescribed by: KEITH BAL on 09/07/15 5402 Vit/Iron Fumarate/FA 1 Each Tablet, 1 EACH PO DAILY, (Reported) Patient Home Medication List Home Medication List Reviewed: Yes OB - History Hx of Present Care: Yes Ultrasounds: Normal mid trimester US Obstetrical Complications: None (abnormal quad screen) Medical Complications: None Delivery History Hx Blood Disorders: No Adverse Rxn to Tranfusion: No Patient Past Medical History none Social History/Family History Recent Infectious Disease Expo: No Alcohol Use: Denies Use Recreational Drug Use: No Immunizations Hepatitis A: Yes Hepatitis B: Yes Tetanus Booster (TDap): Less than 5yrs Date of Influenza Vaccine: Aug 20, 2015 OB - Admission Exam Physical Exam Vitals: Vital Signs 04/11/19 01:00 Temp 97.7 Pulse 63 Resp 18 B/P (MAP) 117/73 (88) O2 Delivery Room Air HEENT: NCAT Heart: Rhythm Normal Lungs: Clear Abdomen: Gravid Extremities: Normal Reflexes: Normal Cervical Dilatation: 2cm Effacement: 75% Station: -1 Membranes: Intact Heart Rate: 130's Accelerations: Accelerations Present Decelerations: No Decelerations Short Term Variability: Present Senior Living Variability: Average (6-25) Contractions on Admission: >10 Minutes Apart Intensity: Mild Cross Scoring Tool (Modified) Dilation (cm): 1-2cm (1) Effacement (%): 51-79% (2) Descent/Station: -1,0 (2) Cervix Consistency: Soft (2) Cervix Position: Anterior (2) Add 1 point for: Each previous vaginal delivery (1) Cross Score: 10 Labs Laboratory Tests Test 04/10/19 19:25 04/10/19 19:40 Range/Units Urine Color YELLOW Urine Clarity CLEAR Urine pH 6.5 5-9 Urine Specific [place] 1.020 1.016-1.022 Urine Protein NEGATIVE NEGATIVE Urine Glucose (UA) NEGATIVE NEGATIVE Urine Ketones NEGATIVE NEGATIVE Urine Nitrite NEGATIVE NEGATIVE Urine Bilirubin NEGATIVE NEGATIVE Urine Urobilinogen NORMAL NORMAL MG/DL Urine Leukocyte Esterase 1+ H NEGATIVE Urine RBC (Auto) NEGATIVE NEGATIVE Urine RBC NONE /HPF Urine WBC 2-5 /HPF Urine Squamous Epithelial Cells 25-50 H /HPF Urine Crystals NONE /LPF Urine Bacteria TRACE /HPF Urine Casts NONE /LPF Urine Mucus NEGATIVE /LPF Urine Culture Indicated NO White Blood Count 7.1 4.3-11.0 10^3/uL Red Blood Count 3.90 L 4.35-5.85 10^6/uL Hemoglobin 11.5 11.5-16.0 G/DL Hematocrit 34 L 35-52 % Mean Corpuscular Volume 87 80-99 FL Mean Corpuscular Hemoglobin 30 25-34 PG Mean Corpuscular Hemoglobin Concent 34 32-36 G/DL Red Cell Distribution Width 14.8 H 10.0-14.5 % Platelet Count 242 130-400 10^3/uL Mean Platelet Volume 10.7 H 7.4-10.4 FL Neutrophils (%) (Auto) 67 42-75 % Lymphocytes (%) (Auto) 22 12-44 % Monocytes (%) (Auto) 10 0-12 % Eosinophils (%) (Auto) 1 0-10 % Basophils (%) (Auto) 0 0-10 % Neutrophils # (Auto) 4.7 1.8-7.8 X 10^3 Lymphocytes # (Auto) 1.5 1.0-4.0 X 10^3 Monocytes # (Auto) 0.7 0.0-1.0 X 10^3 Eosinophils # (Auto) 0.1 0.0-0.3 10^3/uL Basophils # (Auto) 0.0 0.0-0.1 10^3/uL OB - Assessment/Plan/Diagnosis Assessment Assessment: induction of labor Admission Dx 34 yo @ 39 weeks AMA Abnormal quad screen GBS neg Admission Status: Inpatient Order (span 2 midnights) Reason for Inpatient Admission: Induction of labor at 39 weeks Plan Plan: Induction Induction Method: per Misoprostol Protocol KEITH BAL DO Apr 11, 2019 3:30 am
--- NOTE | 2019-04-11 03:35 | OB Labor & Delivery Record ---
L&D History Date of Service Date of Service: Apr 11, 2019 History Expected Date of Delivery: Apr 16, 2019 Gestational Age in Weeks: 39 Hx : 3 Hx Para: 2 Complications Events: Routine care (Abnormal quad, AMA) Operative Indications (Cesarea: N/A-Vaginal Delivery Intrapartal Events: None L&D Stage1 Stage One Onset of Labor - Date: Apr 11, 2019 Monitors and Tracing Monitor Mode: External Heart Rate: 140 Monitor Accelerations: Uniform Monitor Decelerations: Variable Station: -1 Chain Tender Variability: Average (6-10) Short Term Variability: Present Presentation: Vertex Vital Signs VS - Last 72 Hours, by Label 04/10/19 04/10/19 04/10/19 04/11/19 20:00 22:00 23:00 00:00 Temp 97.8 Pulse 70 69 59 61 Resp 18 18 18 18 B/P (MAP) 119/77 (91) 117/78 (91) 113/68 (83) 121/72 (88) O2 Delivery Room Air Room Air Room Air Room Air 04/11/19 01:00 Temp 97.7 Pulse 63 Resp 18 B/P (MAP) 117/73 (88) O2 Delivery Room Air Rupture of Membranes Spontaneous Ruture of Membrane: Yes Amniotic Membrane Rupture Time: 02:35 Amniotic Membrane Fluid Desc.: Clear Vaginal Bleeding Description: Normal Show Progress/Notes Patient admitted about 1999 last night and given single dose of 100 mcg PO cytotec. She began having contractions regularly and progressed to 6 cm when SROM happened. Epidural was called for, but the patient progressed rapidly in the next 15 min to complete and +1 station, when I arrived. No epidural was obtained, no pain medication given L&D Stage2 Stage Two Stage II Date: Apr 11, 2019 Monitors and Tracing Monitor Mode: External Heart Rate: 140 Monitor Accelerations: Uniform Monitor Decelerations: Variable Longterm Variability: Average (6-10) Short Term Variability: Present Position: Right Occiput Anterior Presentation: Vertex Cord Descript/Complications Cord Vessel Description: 3 Vessels Delivery Type Infant Delivery Method: Spontaneous Vaginal Anterior Shoulder: Right Episiotomy/Perineal Laceration Laceraction(s)/Extensions: Yes Episiotomy Description: Midline, Periurethral Extnsion/lac Location Modifier: Right Sutures Used: Vicryl Degree (describe repair) Midline episiotomy and right periurethral extending to clitoral laceration repaired using 3-0 rapide in usual fashion. Condition of Delivery 1 minute Comment: 9 5 minute Comment: 10 Notes Live male infant weight pending Condition of Condition of : Living Exam: No Observed Abnormalities Resuscitation Resuscitation: N/A - Spontaneous Resp L&D Stage3 Stage Three Stage III Date: Apr 11, 2019 Pictocin Pitocin Administration Comment: 30 mu wide open at delivery of placenta Placenta Delivery Placenta Delivery: Spontaneous Delivery Summary Summary Estimated blood loss (mL): 350 Attending at delivery: Keith Bal DO Condition of Delivery Examined: Cervix Examined, Uterus Explored Post Hemorrhage: No Condition of Mother stable Condition of (s) stable KEITH BAL DO Apr 11, 2019 3:35 am
--- NOTE | 2019-04-11 03:37 | Discharge Inst-Women's Service ---
Discharge Inst-Women's Serv Depart Medication/Instructions New, Converted or Re-Newed RX: RX on Chart Final Diagnosis PPD 1 NVD Problems Reviewed?: Yes Consults/Follow Up Additional Follow Up: Yes Orders/Referrals [place] in 6 weeks Activity Activity: Activity as Tolerated Driving Instructions: No Driving for 1 Week NO SMOKING: NO SMOKING Nothing Inside Vagina: No Douching, No [place], No Tampons Diet Discharge Diet: No Restrictions Symptoms to Report to : Bleeding Excessive, Pain Increased, Fever Over 101 Degrees F, Vaginal Bleeding Increase, Questions/Concerns For Any Problems or Questions: Contact Your Physician KEITH BAL DO Apr 11, 2019 3:37 am
[2019-04-11] MEDS ORDERED: IBUP-844 PO (03:39)
[2019-04-11] MEDS ORDERED: FERR325T18 PO (03:39)
[2019-04-11] MEDS ORDERED: DOCU100C37 PO (03:39)
[2019-04-11] MEDS ORDERED: ACHD5005 PO (03:39)
[2019-04-11] MEDS ORDERED: Benzocaine/Menthol TP (03:39)
[2019-04-11] MEDS: HYDROcodone/APAP 5 MG/325 MG (LORTAB) TAB PO PRN ×3 (03:41→18:25)
[2019-04-11] MEDS ORDERED: TETANUS,DIPTH,PERTUSS P/F (BOOSTRIX) 0.5 ML VIAL IM ONE (03:45)
[2019-04-11] MEDS ORDERED: WITCH HAZEL(TUCKS) 40 EA JAR TOP PRN (03:45)
[2019-04-11] MEDS ORDERED: MEASLES,MUMPS,RUBELLA 1 EA INJ SQ ONE (03:45)
[2019-04-11] MEDS ORDERED: BENZOCAINE/MENTHOL (DERMOPLAST) 56 ML CAN TP PRN (03:45)
[2019-04-11] MEDS: IBUPROFEN 600 MG (MOTRIN) TAB PO SCH ×4 (04:15→22:00)
--- NOTE | 2019-04-11 05:00 | NUR ---
Positive void at this time. Pericare provided, patient educated on dermaplast spray, fresh gown and underwear placed, preparing to move to room 310.
--- NOTE | 2019-04-11 05:10 | NUR ---
Patient transferred via wheelchair to room 310, oriented to call lights and room. No needs at this time. Call light within reach. Will continue to monitor.
[2019-04-11] MEDS ORDERED: CATHETER FLUSH 10 ML SYR IV SCH (06:00)
[2019-04-11] MEDS: DOCUSATE SODIUM 100 MG (COLACE) CAP PO SCH ×2 (07:56→22:00)
[2019-04-11] MEDS: PRENATAL VITAMIN 1 EA TAB PO SCH (07:57)
[2019-04-11] MEDS: FERROUS SULF 325 MG (IRON) TAB PO SCH (07:57)
--- NOTE | 2019-04-11 08:05 | NUR ---
PT IN BED, EATING FRUIT. VS OBTAINED. MEDS GIVEN PO; SEE EMAR FOR FURTHER. INITIAL SHIFT ASSESSMENT COMPLETED; SEE INTERVENTION FOR FURTHER. FRESH ICE WATER AND SALTINE CRACKERS PROVIDED. VISITORS TO PT'S BEDSIDE.
--- NOTE | 2019-04-11 10:31 | NUR ---
PT IN BED, VISITORS AT THE BEDSIDE. MYRIAM TOWNSEND, AT PT'S BEDSIDE DISCUSSING . ROUTINE MOTRIN GIVEN PO; SEE EMAR FOR FURTHER. PT DENIES ANY NEEDS AT THIS TIME. CALL LIGHT WITHIN REACH.
[2019-04-11] MEDS: DOCUSATE CALCIUM 240 MG (SURFAK) CAP PO SCH (11:15)
--- NOTE | 2019-04-11 14:15 | NUR ---
PT RESTING. FAMILY AT THE BEDSIDE, NO NEEDS VOICED.
--- NOTE | 2019-04-11 16:27 | NUR ---
PT IN BED, VISITORS PRESENT. PT JUST FINISHED ATTEMPTING TO FEED . VS OBTAINED. ROUTINE MOTRIN GIVEN PO; SEE EMAR FOR FURTHER. MORE VISITORS TO BEDSIDE. NO NEEDS VOICED.
--- NOTE | 2019-04-11 18:25 | NUR ---
PT IN BED, VISITOR AT BEDSIDE. (1) LORTAB GIVEN PO PER REQUEST; SEE EMAR FOR FURTHER. NO FURTHER NEEDS VOICED.
[2019-04-12 03:40] VITALS: BP 128/80
[2019-04-12] MEDS: IBUPROFEN 600 MG (MOTRIN) TAB PO SCH ×3 (03:40→15:30)
[2019-04-12 05:22] LABS: BASOPHILS % (AUTO) 0 % (0-10); EOSINOPHILS # (AUTO) 0.2 10^3/uL (0.0-0.3); EOSINOPHILS % (AUTO) 2 % (0-10); HEMATOCRIT 29 % (35-52); HEMOGLOBIN 9.9 G/DL (11.5-16.0); LYMPHOCYTES # (AUTO) 1.8 X 10^3 (1.0-4.0); LYMPHOCYTES % (AUTO) 22 % (12-44); MEAN CORPUSCULAR HEMOGLOBIN 30 PG (25-34); MEAN CORPUSCULAR HGB CONC 34 G/DL (32-36); MEAN CORPUSCULAR VOLUME 87 FL (80-99); MEAN PLATELET VOLUME 10.1 FL (7.4-10.4); MONOCYTES # (AUTO) 0.7 X 10^3 (0.0-1.0); MONOCYTES % (AUTO) 8 % (0-12); NEUTROPHILS # (AUTO) 5.4 X 10^3 (1.8-7.8); NEUTROPHILS % (AUTO) 67 % (42-75); PLATELET COUNT 217 10^3/uL (130-400); RED CELL DISTRIBUTION WIDTH 15.1 % (10.0-14.5); WHITE BLOOD COUNT 8.1 10^3/uL (4.3-11.0)
--- NOTE | 2019-04-12 08:08 | Postpartum Progress Note ---
Note Note Day # 1 Subjective: Patient is without complaints. Ambulating, voiding. Tolerating a regular diet without nausea or vomiting. Normal lochia. Pain is well controlled with oral pain medications. Objective: Physical Exam: General - Alert and oriented, no apparent distress Abdomen - Soft, appropriately tender to palpation, non-distended, fundus firm at umbilicus Extremities - no edema, negative Ingrid's bilaterally Assessment: PPD 1 NVD Acute blood loss anemia Plan: Routine care. Encourage breast feeding. Encourage ambulation. Ferrous sulfate supplementation. Plan for discharge today Vitals - Labs Vital Signs - I&O Vital Signs Date Time Temp Pulse Resp B/P (MAP) Pulse Ox O2 Delivery O2 Flow Rate FiO2 04/12/19 03:40 98.2 66 18 128/80 (96) 98 Room Air 04/11/19 22:00 97.7 61 18 108/74 (85) 97 Room Air 04/11/19 16:26 98.6 67 18 109/67 (81) 98 Room Air 04/11/19 13:00 98.5 68 18 114/67 (83) 97 Room Air 04/11/19 09:15 98.2 72 14 103/63 (76) 97 Room Air Labs Laboratory Tests 04/12/19 05:13: White Blood Count 8.1, Red Blood Count 3.34L, Hemoglobin 9.9L, Hematocrit 29L, Mean Corpuscular Volume 87, Mean Corpuscular Hemoglobin 30, Mean Corpuscular Hemoglobin Concent 34, Red Cell Distribution Width 15.1H, Platelet Count 217, Mean Platelet Volume 10.1, Neutrophils (%) (Auto) 67, Lymphocytes (%) (Auto) 22, Monocytes (%) (Auto) 8, Eosinophils (%) (Auto) 2, Basophils (%) (Auto) 0, Neutrophils # (Auto) 5.4, Lymphocytes # (Auto) 1.8, Monocytes # (Auto) 0.7, Eosinophils # (Auto) 0.2, Basophils # (Auto) 0.0 KEITH BAL DO Apr 12, 2019 08:08
[2019-04-12 09:15] VITALS: BP 113/66
--- NOTE | 2019-04-12 09:15 | NUR ---
A.M. ASSESSMENT COMPLETED. VSS. WELL. GOOD INTERACTION NOTED.
[2019-04-12] MEDS: FERROUS SULF 325 MG (IRON) TAB PO SCH (09:57)
[2019-04-12] MEDS: DOCUSATE CALCIUM 240 MG (SURFAK) CAP PO SCH (09:57)
[2019-04-12] MEDS: PRENATAL VITAMIN 1 EA TAB PO SCH (09:57)
[2019-04-12] MEDS: DOCUSATE SODIUM 100 MG (COLACE) CAP PO SCH (10:00)
--- NOTE | 2019-04-12 12:00 | NUR ---
DR. BAL HERE TO SEE PT. PLAN FOR DISCHARGE.
[2019-04-12 14:30] VITALS: BP 105/69
--- NOTE | 2019-04-12 14:35 | NUR ---
RHOGAM 1 VIAL IM IN LEFT VG SITE. SITE CLEAR.
--- NOTE | 2019-04-12 14:45 | NUR ---
DISCHARGE INSTRUCTIONS REVIEWED WITH COPY TO PT. STATES UNDERSTANDING OF ALL INSTRUCTIONS AND NEED TO F/U SCHEDULED AND NEEDED. RXS GIVEN.
[2019-04-12 16:40] VITALS: BP 105/69
--- NOTE | 2019-04-12 16:40 | NUR ---
DISMISSED AMB FROM [facility] WITH IN STABLE CONDITION TO FAMILY CAR ACC BY SPOUSE AND WS STAFF.
== END 2019-04-12 16:40 | disposition home or self-care (01) | DRG 806 ==
LOC: LDRP 19:20
PROVIDERS: ADMIT Obstetrics & Gynecology; ATTEND Obstetrics & Gynecology
PROC: 10E0XZZ Delivery of Products of Conception, External Approach (ICD-10-PCS; principal; 2019-04-11)
PROC: 0W8NXZZ Division of Female Perineum, External Approach (ICD-10-PCS; 2019-04-11)
PROC: 0UQMXZZ Repair Vulva, External Approach (ICD-10-PCS; 2019-04-11)
PROC: 3E0DXGC Introduction of Other Therapeutic Substance into Mouth and Pharynx, External Approach (ICD-10-PCS; 2019-04-11)
DX: O71.82 Other specified trauma to perineum and vulva (principal); O90.81 Anemia of the puerperium; D62 Acute posthemorrhagic anemia; Z37.0 Single live birth; Z3A.39 39 weeks gestation of pregnancy
CPT/HCPCS: 36415; 81000; 83033; 85025; 86850; 86900; 86901; 88307

== ENCOUNTER 2021-04-23 05:33 | Outpatient (CLI) | payer OTHER ==
[~2021-04-23] VITALS: Ht 157.5 cm; Wt 54.5 kg
[~2021-04-23 05:33] MED LIST changes: +ACHD5005 PO; +Benzocaine/Menthol TP; +CYAN500T44 PO; +IBUP-844 PO; +OXC5T PO; -OXYC-529 PO
== END 2021-04-23 11:20 | disposition home or self-care (01) ==
LOC: PREOP 05:33
PROVIDERS: ATTEND Obstetrics & Gynecology
DX: Z01.818 Encounter for other preprocedural examination (principal)

== ENCOUNTER 2021-04-29 09:29 | Day surgery (SDC) | payer BC, OTHER ==
[2021-04-29] VITALS (11 sets, daily range): BP systolic 93–120; BP diastolic 49–92
[~2021-04-29] VITALS: Ht 157.5 cm; Wt 54.5 kg
[2021-04-29] MEDS ORDERED: LACTATED RINGERS 1,000 ML IV ONE (10:00)
[2021-04-29] MEDS ORDERED: ceFAZolin INJECTION 1,000 MG in WATER (STERILE) FOR INJECTION 10 ML IV ONE (10:00)
[2021-04-29] MEDS ORDERED: metroNIDAZOLE 500MG/100ML IVPB 100 ML IV ONE (10:00)
[2021-04-29 10:31] LABS: BASOPHILS % (AUTO) 0 % (0-10); EOSINOPHILS # (AUTO) 0.2 10^3/uL (0.0-0.3); EOSINOPHILS % (AUTO) 3 % (0-10); HEMATOCRIT 40 % (35-52); HEMOGLOBIN 13.9 g/dL (11.5-16.0); LYMPHOCYTES # (AUTO) 1.5 10^3/uL (1.0-4.0); LYMPHOCYTES % (AUTO) 30 % (12-44); MEAN CORPUSCULAR HEMOGLOBIN 29 pg (25-34); MEAN CORPUSCULAR HGB CONC 35 g/dL (32-36); MEAN CORPUSCULAR VOLUME 85 fL (80-99); MEAN PLATELET VOLUME 9.9 fL (9.0-12.2); MONOCYTES # (AUTO) 0.4 10^3/uL (0.0-1.0); MONOCYTES % (AUTO) 8 % (0-12); NEUTROPHILS % (AUTO) 58 % (42-75); PLATELET COUNT 271 10^3/uL (130-400); WHITE BLOOD COUNT 5.1 10^3/uL (4.3-11.0)
[2021-04-29] MEDS ORDERED: ROCURONIUM 10 MG/ML 5 ML SYRINGE IV ONE (10:39)
[2021-04-29] MEDS ORDERED: LIDOCAINE PF 2% 5 ML (XYLOCAINE) VIAL ONE (10:39)
[2021-04-29] MEDS ORDERED: fentaNYL INJ 100 MCG/2 ML AMP ONE (10:39)
[2021-04-29] MEDS ORDERED: proPOfol 200 MG/20 ML (DIPRIVAN) VIAL IV ONE (10:39)
[2021-04-29] MEDS ORDERED: ONDANSETRON 4 MG/2 ML (SDV) Z0FRAN ONE (10:39)
[2021-04-29] MEDS ORDERED: MIDAZOLAM 2 MG/2 ML (VERSED) VIAL ONE (10:40)
[2021-04-29] MEDS ORDERED: BUPIVACAINE 0.25% 30 ML (SENSORCAINE) VIAL ONE (10:41)
[2021-04-29] MEDS: LACTATED RINGERS 1,000 ML IV PRN ×2 (10:56→11:35)
--- NOTE | 2021-04-29 11:09 | Progress Note-Pre Operative ---
Pre-Operative Progress Note H&P Reviewed The H&P was reviewed, patient examined and no changes noted. Date Seen by Provider: Apr 29, 2021 Time Seen by Provider: 11:05 Date H&P Reviewed: Apr 29, 2021 Time H&P Reviewed: 11:00 Pre-Operative Diagnosis: POP, Rectocele KEITH BAL DO Apr 29, 2021 11:09 am
--- NOTE | 2021-04-29 11:12 | Discharge Inst-Women's Service ---
Discharge Inst-Women's Serv Depart Medication/Instructions New, Converted or Re-Newed RX: RX on Chart Problems Reviewed?: Yes Consults/Follow Up Additional Follow Up: Yes Orders/Referrals Dr. Villagomez in 7-10 days and in 8 weeks Activity Activity: Activity as Tolerated Driving Instructions: No Driving for 1 Week NO SMOKING: NO SMOKING Nothing Inside Vagina: No Douching, No [place], No Tampons Diet Discharge Diet: No Restrictions Symptoms to Report to : Bleeding Excessive, Pain Increased, Fever Over 101 Degrees F, Vaginal Bleeding Increase, Questions/Concerns For Any Problems or Questions: Contact Your Physician Skin/Wound Care Infection Signs and Symptoms: Increased Redness, Foul Odor of Wound, Increased Drainage, Skin Itchy or Has a Rash, Increased Swelling, Temperature Above 101 F Operative Area Clean and Dry: Keep Incision Clean/Dry Stitches/Anmol/Dermabond: Dermabond, Care of Stitches Bathing Instructions: KEITH Ch DO Apr 29, 2021 11:12 am
[2021-04-29] MEDS ORDERED: NALOXONE 0.4 MG/ML 1 ML (NARCAN) VIAL IV PRN (11:15)
[2021-04-29] MEDS ORDERED: HYDROcodone/APAP 7.5 MG/325 MG (LORTAB, LORCET PLUS) TABLET PO PRN (11:15)
[2021-04-29] MEDS ORDERED: ANTACID SUSP 30 ML UDC (MYLANTA) PO PRN (11:15)
[2021-04-29] MEDS ORDERED: ONDANSETRON 4 MG/2 ML (SDV) Z0FRAN IV PRN (11:15)
[2021-04-29] MEDS ORDERED: DOCUSATE SODIUM 100 MG (COLACE) CAP PO PRN (11:15)
[2021-04-29] MEDS ORDERED: SIMETHICONE 80 MG (MYLICON) CHEW PO PRN (11:15)
[2021-04-29] MEDS ORDERED: ZOLPIDEM 5 MG (AMBIEN) TAB PO PRN (11:15)
[2021-04-29] MEDS: LACTATED RINGERS 1,000 ML IV SCH ×3 (11:15→20:07)
[2021-04-29] MEDS ORDERED: CHLORASEPTIC LOZENGE MM PRN (11:15)
[2021-04-29] MEDS ORDERED: VASOPRESSIN INJECTION 20 UNIT/ML VIAL ONE (11:38)
[2021-04-29] MEDS ORDERED: NS (IVPB) 100 ML ONE (11:39)
[2021-04-29] MEDS ORDERED: ESTROGENS CONJ. CREAM 30 GM (PREMARIN) TUBE ONE (12:18)
[2021-04-29] MEDS ORDERED: NEOSTIGMINE 3 MG/3 ML VIAL ONE (12:21)
[2021-04-29] MEDS ORDERED: GLYCOPYRROLATE 0.2 MG/ML (ROBINUL) 2 ML VIAL ONE (12:21)
[2021-04-29] MEDS ORDERED: SEVOFLURANE (ULTANE) 15 ML INHAL SOLN ONE (12:52)
[2021-04-29] MEDS ORDERED: KETOROLAC 30 MG/ML VIAL ONE (13:05)
[2021-04-29] MEDS: KETOROLAC 30 MG/ML VIAL IVP PRN ×2 (13:07→20:07)
--- NOTE | 2021-04-29 13:08 | Anesthesia-General Post-Op ---
General Patient Condition Mental Status/LOC: Same as Preop Cardiovascular: Satisfactory Nausea/Vomiting: Absent Respiratory: Satisfactory Pain: Controlled Complications: Absent Post Op Complications Complications None Follow Up Care/Instructions Patient Instructions None needed. Anesthesia/Patient Condition Patient Condition Patient is doing well, no complaints, stable vital signs, no apparent adverse anesthesia problems. No complications reported per nursing. OLYA MARY CRNA Apr 29, 2021 13:08
[2021-04-29] MEDS ORDERED: morphine INJ 10 MG/ML 1ML (SYR OR VIAL) ONE (13:14)
[2021-04-29] MEDS ORDERED: HYDROmorphone 2 MG/ML VIAL (DILAUDID) IV ONE (13:15)
[2021-04-29] MEDS ORDERED: ONDANSETRON 4 MG/2 ML (SDV) Z0FRAN IVP PRN (13:15)
[2021-04-29] MEDS ORDERED: morphine INJ 10 MG/ML 1ML (SYR OR VIAL) IVP ONE (13:15)
[2021-04-29] MEDS ORDERED: HYDROmorphone 2 MG/ML VIAL (DILAUDID) IV PRN (14:30)
[2021-04-29] MEDS: HYDROmorphone 2 MG/ML VIAL (DILAUDID) ONE (15:03)
--- NOTE | 2021-04-29 20:58 | OPERATIVE REPORT ---
DATE OF SERVICE: PREOPERATIVE DIAGNOSES: 1. A 36-year-old female with pelvic organ prolapse. 2. Rectocele, grade II. POSTOPERATIVE DIAGNOSES: 1. A 36-year-old female with pelvic organ prolapse. 2. Rectocele, grade II. PROCEDURES PERFORMED: Robotic-assisted total laparoscopic hysterectomy with bilateral salpingectomy and posterior colporrhaphy. SURGEON: David Villagomez DO. ANESTHESIA: General endotracheal. ESTIMATED BLOOD LOSS: Minimal. URINE OUTPUT: 200 mL clear at the end of the procedure. FLUIDS: Three liters of lactated Ringer's solution. FINDINGS: A grade II to III rectocele with moderate prolapse of the cervix to the level of the vaginal introitus with Valsalva. Grossly normal appearing uterus, bilateral fallopian tubes and ovaries. SPECIMEN SENT: Uterus, bilateral fallopian tubes. INDICATIONS FOR PROCEDURE: This 36-year-old female is a patient, who has had three pregnancies under my care. Her course after her third involved significant prolapse. The patient tried conservative measures in the form of pelvic floor physical therapy, had some relief, but no adequate improvement by the patient's standards. She wished to move forward with more aggressive measures for addressing her pelvic organ prolapse. We discussed robotic hysterectomy with posterior colporrhaphy. Risks of this procedure were discussed with the patient in detail including risk of bleeding, infection, damage to the surrounding structures including, but not limited to bowel, bladder, ureter, and kidneys, possible need for reoperation, and postoperative complications that may occur including recovery timeframe, risk from anesthesia and even . After everything was discussed with the patient in detail, consent was obtained in the preoperative area and the patient was taken to the operating room. OPERATIVE REPORT IN DETAIL: Once in the operating room, general anesthesia was found to be adequate. She was placed in a dorsal lithotomy position, prepped and draped in a normal sterile fashion. A timeout was performed. Delgado catheter was placed using a sterile technique. A weighted speculum inserted to the patient's vagina. Right angle retractor was used to visualize the cervix. It was grasped at 12 o'clock position using a long Allis clamp. I then placed a 0 Vicryl suture through the anterior lip of the cervix. Allis clamp was then removed. I then gently sound the uterine cavity, depth was found to be 8 cm. I placed a Marquita uterine manipulator to a depth of 8 cm with a 3.5 cm colpotomy ring, which was advanced around the vaginal fornix. I then removed all the other instruments from the patient's vagina, performed change of gloves, took my attention to the abdomen, where the left upper quadrant a fingerbreadth below the subcostal line in the midclavicular line, I placed a Veress needle and intraperitoneal placement was confirmed using a saline drop test. An opening pressure of 2 mmHg was noted. I proceeded to a maximum pressure of 15 mmHg using CO2 gas and then made a supraumbilical trocar placed in the incision using a knife and placed the trocar through the incision and intraperitoneal placement was confirmed using the da Shaun laparoscope. A brief scan of the upper abdominal anatomy appears to be grossly normal. There was no evidence of damage upon either entry site. The Veress needle was then removed. The patient was then placed in a steep Trendelenburg. I was able to visualize all my pelvic anatomy as defined in my findings above. I then placed two lateral trocars using both 8 mm trocars approximately 8 cm lateral to my infraumbilical trocar. Once these trocars were in place, I brought in the da Shaun laparoscope and docked it in appropriate fashion, placing the da Shaun vessel sealer in the left hand and monopolar vega in the right hand. I performed the following dissection bilaterally. Starting at the uteroovarian ligament, I sealed and transected this using a vessel sealer. I then created a window in the mesosalpinx, took this laterally down the fallopian tube, amputating the fallopian tubes from the surrounding blood supply. I then sealed and grasped the round ligament and transected using the vessel sealer. I then grasped and sealed the broad ligament down to the level of the lower uterine segment, at which point, I the anterior and posterior leaflets of the broad ligament, anterior leaflet was taken around the anterior vaginal fornix and posterior leaflet was taken around the posterior vaginal fornix. This allows me to skeletonize the uterine vessels laterally, which I sealed and transected using the vessel sealer. I then created a colpotomy at 12 o'clock position using monopolar vega and took this circumferentially around the vaginal fornix amputating the cervix away from the vagina. The entire uterus and fallopian tubes were then removed through the vagina. I then closed the lateral vaginal apices of the vaginal cuff using 2-0 Vicryl suture in a [id number] fashion colposuspending them to the uterosacral ligaments. I then closed the remainder of the vaginal cuff using 2-0 V-Loc in a running fashion, after which there was no active bleeding noted from any of my dissection planes. I then undocked the da Shaun robot and proceeded with the remainder of the case laparoscopically. I copiously irrigated the pelvis using normal saline. Once again, there was no active bleeding noted from any of my dissection planes. I placed Surgiflo hemostatic agent over all my planes of dissection to ensure excellent postoperative hemostasis. I then took my attention back down to the vagina, where I addressed the rectocele. A triangular incision on the peritoneum was then made after I injected this area using vasopressin, a concentration of 20 units in 100 mL normal saline. I then injected all the margins of the mucosa of the rectocele using the same vasopressin injection after which I made a midline incision down the rectocele and grasped the lateral aspect of the mucosa, tenting upward and dissecting off the underlying vaginal rectal fascia. This dissection was taken laterally until the margins of the rectocele were met. I then trimmed the excess vaginal mucosa and began by reapproximating and plicating the rectocele using 0 Vicryl suture in an interrupted fashion, reapproximating the vaginal rectal fascia. I then closed the vaginal mucosa using 0 Vicryl suture in a running locked fashion to the level of the mucocutaneous junction, at which point, I closed the remainder of the incision down the midline in a running subcuticular fashion, after which, I packed the vagina using a Premarin soaked packing. Lap and sponge counts were correct at the end of the procedure. Instrument counts were correct as well. Two grams of Ancef and 500 mg of Flagyl were given preoperatively for infection prophylaxis. The patient tolerated the procedure well and sent to recovery area in a stable condition. Job ID: [id number] DocumentID: [id number] Dictated Date: 04/29/2021 13:04:00 Process Development Associate Date: 04/29/2021 20:57:31 Dictated By: DO ALEJANDRO BAKER
[2021-04-30 03:08] VITALS: BP 108/65
[2021-04-30] MEDS: KETOROLAC 30 MG/ML VIAL IVP PRN (03:08)
[2021-04-30 07:08] VITALS: BP 114/57
[2021-04-30] MEDS ORDERED: IBUP-844 PO (08:34)
[2021-04-30] MEDS ORDERED: HYDR-34 PO (08:34)
[2021-04-30] MEDS ORDERED: SMT80CT PO (08:34)
[2021-04-30] MEDS ORDERED: DCS100C PO (08:34)
[2021-04-30] MEDS ORDERED: IBUPROFEN 600 MG (MOTRIN) TAB PO SCH (12:00)
== END 2021-04-30 10:45 | disposition home or self-care (01) ==
LOC: SDC 09:29 → WS 14:16 → SDC 04-30 10:45
PROVIDERS: ATTEND Obstetrics & Gynecology
DX: N81.89 Other female genital prolapse (principal); N81.6 Rectocele; N39.3 Stress incontinence (female) (male); Z83.3 Family history of diabetes mellitus; Z82.49 Family history of ischemic heart disease and other diseases of the circulatory system
CPT/HCPCS: 36415; 84703; 85025; 86850; 86900; 86901; 87081; 94664